=== PATIENT | male | born 1975 | race Caucasian/White ===

== ENCOUNTER 2016-08-05 13:05 | Emergency (ER) ==
[2016-08-05 14:28] VITALS: BP 129/92
--- NOTE | 2016-08-05 15:39 | Diag Imaging Result Document ---
PROCEDURE NAME: KNEE 3 VIEWS RIGHT - 08/05/2016 RIGHT KNEE, THREE VIEWS: FINDINGS: There is no evidence of fracture or dislocation. No other definite bony abnormalities are present. IMPRESSION: No acute disease.
--- NOTE | 2016-08-05 15:46 | PROVIDER DOCUMENTATION ---
HPI-Musculoskeletal Pain/Inj - GENERAL Chief Complaint: Extremity Injury Stated Complaint: KNEE INJURY Time Seen by Provider: 08/05/16 15:04 Source: patient - HX OF PRESENT ILLNESS-MUSKULOSKELTAL Nature of Presenting Problem: 40 y/o WM with no significant PMH presents with R knee pain with 14 day onset. 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 He states the pain is usually worse in the morning, describes it as an "achy pain" radiating down his leg, and sometimes feels a "popping sensation." He has been taking ibuprofen and trying RICE (rest, icing, compression, and elevation) hoping it would alleviate his pain, but due to the persisting symptoms, he was prompted to visit the ER today. He denies any smoking, EtOH, or illicit drug use. Quality of Pain: reports: aching Severity in ED: mild Onset/Duration: other (see hpi) Timing: still present Modifying Factors: improves with: movement, palpation Any recent injury?: No Similar Symptoms Previously?: Yes Recently seen or treated by another doctor?: No Review of Systems - Adult - REVIEW OF SYSTEMS - ADULT Constitutional: reports: no symptoms reported. denies: chills, fever Eyes: reports: no symptoms reported. denies: discharge, dry eyes Ears, Nose, Mouth & Throat: reports: no symptoms reported. denies: ear discharge, ear pain Cardiovascular: reports: no symptoms reported. denies: chest pain, edema Respiratory: reports: no symptoms reported. denies: chronic cough, cough Gastrointestinal: reports: no symptoms reported. denies: abdominal pain, hematemesis Genitourinary: reports: no symptoms reported. denies: dysuria, discharge Musculoskeletal: reports: joint pain. denies: bone pain, back pain, joint swelling, muscle aches Integumentary: reports: no symptoms reported. denies: hives, hair loss Neurological: reports: no symptoms reported. denies: dizziness/vertigo, headache/migraines Psychiatric: reports: no symptoms reported. denies: anxiety, anti-depressant use Endocrine: reports: no symptoms reported Hematologic/Lymphatic: reports: no symptoms reported Allergic/Immunologic: reports: no symptoms reported All Other Systems: Reviewed and Negative Past History - Adult - PAST MEDICAL HISTORY-ADULT Review of Records: reports: Old Records Reviewed, Nursing Assessment Review, Medications Reviewed, Social history reviewed & non-contributory. Major Childhood Illnesses: reports: denies history Cardiovascular: reports: denies history Respiratory: reports: denies history Gastrointestinal: reports: denies history Obstetrical/Gynecological: reports: denies history Genitourinary: reports: denies history Musculoskeletal: reports: spinal fracture (compound) Neurological: reports: denies history Endocrine/Immune: reports: denies history Other Conditions: reports: MRSA - PRIOR SURGERIES/PROCEDURES Surgical/Procedure History: reports: reviewed, not pertinent - IMMUNIZATION STATUS Childhood Immunizations: See Nurse Assessment Flu Vaccine: See Nurse Assessment - FAMILY HISTORY Family History: reviewed, not pertinent Physical Exam-Injury Related - Physical Exam-Injury Related Initial Vital Signs Reviewed: Yes General Appearance: appears well, alert, no apparent distress Eyes: PERRL/EOMI, pink conjunctivae Head, Ears, Nose, Mouth & Throat: normocephalic/atraumatic, normal ENT inspection, TMs normal, pharynx normal Neck: non-tender, full range of motion, supple, normal inspection Respiratory: chest non-tender, lungs clear, normal breath sounds, no pleuratic chest pain, no respiratory distress, no accessory muscle use Cardiovascular: normal peripheral pulses, regular rate, rhythm, no edema, no gallop, no JVD, no murmur Abdominal Exam: normal bowel sounds, non tender, soft, no organomegaly, no pulsatile mass Lymphatic: no adenopathy Back Exam: normal inspection, no CVA tenderness, no vertebral tenderness Extremity: normal range of motion, normal gait, no pedal edema, no calf tenderness, normal capillary refill, pelvis stable, tenderness (medial knee). 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, no motor/sensory deficits Psych/Mental Status: AL, normal mood/affect, normal thought content, normal thought process, oriented x 3 Progress - PLAN OF CARE/RESULTS Progress/Plan/Lab Results: Orders Category Date Time Status KNEE 3 VIEWS RIGHT [RAD] Stat Exams 08/05/16 14:48 Draft Vital Signs Temp Pulse Resp BP Pulse Ox 08/05/16 14:27 97.9 F 76 20 129/92 98 No Known Allergies Allergy (Verified 08/05/16 15:08) No Home Medications 08/05/16 - XRAY 1 XRAY: Right XRAY Study: Knee XRAY Interpretation: nad Departure - Departure Time of Disposition Order: 15:49 DIAGNOSIS: Knee pain Qualifiers: Laterality: right Chronicity: chronic Qualified Code(s): M25.561 - Pain in right knee; G89.29 - Other chronic pain Disposition: HOME 01 Certified Medical Emergency: Urgent Condition: Good Additional Instructions: Take medication as prescribed. Continue with rest, ice and elevation. Continue wearing your knee brace. Follow up with an orthopedist. ED Follow Up Instructions: You have been treated by a care provider in the Emergency Department. These instructions are being provided to you so you can have an understanding of how to care for yourself upon discharge. Upon discharge from the Emergency Department, you are responsible for making arrangements for follow-up care by a physician of your choice. Take all prescribed medications as directed. Return to the Emergency Department immediately for any new or worsening symptoms. You may call the Physician Referral phone number at [phone] to obtain a list of Physicians who are taking new patients. Prescriptions: Meloxicam [Mobic] 7.5 mg PO DAILY PRN PRN #15 tablet PRN Reason: Pain Referrals: Jahaira Washington MD [Primary Care Provider] - Amador Tony MD [STAFF PHYSICIAN] - Attestation - Physician/ Mid-level Attestation Patient care was provided by Mid-level provider ([employer]IRY/PA):: Yes Mid-level provider:: Nate Walker Mid-level documentation review:: The Mid-level provider documentation, treatment plan and medical decision making was reviewed by the physician who agrees with all treatment and medical decision making by the MLP.
== END 2016-08-05 15:57 | disposition home or self-care (01) ==
LOC: ED 13:05
DX: M25.561 Pain in right knee (principal); G89.29 Other chronic pain; Z86.14 Personal history of Methicillin resistant Staphylococcus aureus infection
CPT/HCPCS: 99283